=== PATIENT | male | born 1975 | race Two or more races ===

== ENCOUNTER 2023-03-19 06:55 | Emergency (ER) | payer SELFPAY ==
[~2023-03-19] VITALS: Ht 167.6 cm; Wt 81.0 kg
[2023-03-19 07:27] LABS: Basophils # (auto) 0.1 10 ^3/uL (0-0.2); Basophils % (auto) 0.8 % (0.0-2.0); Eosinophils # (auto) 0.2 10 ^3/uL (0-0.8); Eosinophils % (auto) 2.5 % (0.0-7.0); Hematocrit 43.6 % (41.0-53.0); Hemoglobin 15.2 g/dL (13.5-17.5); Lymphocytes # (auto) 1.7 10 ^3/uL (0.4-5.4); Lymphocytes % (auto) 22.1 % (10.0-50.0); Mean Corpuscular Hemoglobin 31.1 pg (28.0-32.0); Mean Corpuscular Hgb Conc. 34.8 g/dL (32.0-36.0); Mean Corpuscular Volume 89.3 fL (80.0-100.0); Monocytes # (auto) 0.9 10 ^3/uL (0-1.3); Neutrophils # (auto) 4.8 10 ^3/uL (1.6-8.6); Neutrophils % (auto) 62.6 % (37.0-80.0); Red Blood Cells 4.88 10^6/uL (4.5-5.90); White Blood Cell 7.7 10^3/uL (4.4-10.8)
[2023-03-19 07:39] LABS: Albumin 3.7 g/dL (3.4-5.0); Calcium 8.2 mg/dL (8.5-10.1); Potassium 3.6 mmol/L (3.5-5.1)
[2023-03-19 07:44] LABS: BUN/Creatinine Ratio 15.8 (10.0-20.0); Bilirubin, Total 0.6 mg/dL (0.2-1.0); Total Protein 6.7 g/dL (6.4-8.2)
[2023-03-19 08:09] VITALS: BP 127/83
[2023-03-19] MEDS ORDERED: ASPirin 325 MG TAB PO ONE (08:45)
[2023-03-19] MEDS ORDERED: LEVO-28 PO (09:09)
== END 2023-03-19 10:03 | disposition home or self-care (01) ==
LOC: ER 06:55
DX: R07.89 Other chest pain (principal); J40 Bronchitis, not specified as acute or chronic; R51.9 Headache, unspecified
CPT/HCPCS: 36415; 70450; 71045; 80053; 84484; 85025; 93005

== ENCOUNTER 2024-03-18 17:15 | Emergency (ER) | payer MEDICAID, OTHER ==
[~2024-03-18 17:15] MED LIST: LEVO500T91 PO
== END 2024-03-18 17:26 | disposition left against medical advice (07) ==
LOC: ER 17:15
DX: R42 Dizziness and giddiness (principal); Z53.21 Procedure and treatment not carried out due to patient leaving prior to being seen by health care provider